=== PATIENT | female | born 1960 | race Caucasian/White ===

== ENCOUNTER 2020-02-12 21:31 | Emergency (ER) | payer BC, OTHER ==
[~2020-02-12] VITALS: Ht 157.5 cm; Wt 65.8 kg
[2020-02-12 22:03] VITALS: BP 128/71
[2020-02-12] MEDS ORDERED: Ketorolac 30mg Inj IM ONE (22:15)
[2020-02-12] MEDS ORDERED: Methocarbamol 500mg tab ORAL ONE (22:15)
--- NOTE | 2020-02-12 22:15 | Emergency Room Report ---
History of Present Illness General Chief Complaint: Pain Source: Patient Present Illness HPI Patient is a 60-year-old female denies any significant past medical history who presents to the ER complaining of left lower back pain rating down her left leg. Patient states that she first noticed this 1 year ago and that it resolved. She states that she noted again several days ago after walking a significant amount. Patient states that it was worse yesterday and better today. She denies any fever, rash, history of IV drug use, changes to her bowel or bladder habits or focal weakness. She denies any difficulty walking. She states that she just has painful walking. She denies any abdominal pain, nausea or vomiting. Allergies: Coded Allergies: No Known Allergies (Unverified , 02/12/20) COVID-19 Screening Contact w/high risk pt: No Recent Travel to affected area: No Experienced COVID-19 symptoms?: No COVID-19 Testing performed MANUFACTURING [employer]LECT[employer]IAN: No Patient History Social History: Denies: smoking, alcohol use, drug use Last Menstrual Period: na Now: No Reviewed Nursing Documentation: PMH: Agreed; PSxH: Agreed Nursing Documentation-PMH Past Medical History: No Stated History Review of Systems All Other Systems: negative except mentioned in HPI Physical Exam Vital Signs Date Time Temp Pulse Resp B/P (MAP) Pulse Ox O2 Delivery O2 Flow Rate FiO2 02/12/20 21:53 97.9 100 19 128/71 (90) 98 Room Air Sp02 EP Interpretation: reviewed, normal General Appearance: no apparent distress, alert, GCS 15, non-toxic Head: normocephalic, atraumatic Eyes: bilateral eye normal inspection, bilateral eye PERRL ENT: hearing grossly normal, normal pharynx, no angioedema, normal voice Neck: full range of motion, supple/symm/no masses Respiratory: chest non-tender, lungs clear, normal breath sounds, speaking full sentences Cardiovascular #1: regular rate, rhythm, no edema Gastrointestinal: normal bowel sounds, non tender, soft, non-distended, no guarding, no rebound Rectal: other - Able to squeeze butt cheeks together, no saddle anesthesia Genitourinary: no CVA tenderness Musculoskeletal: no calf tenderness, other - Left lower back pain positive straight leg raise on left leg at 60 degrees Neurologic: motor strength/tone normal, drying can worker III-XII nml as tested, oriented x3 , sensory intact Psychiatric: no suicidal/homicidal ideation Skin: no rash Lymphatic: no adenopathy Medical Decision Making Diagnostic Impression: Primary Impression: Lumbar strain Additional Impression: Sciatica ER Course Patient given Toradol as well as Robaxin and prednisone in the emergency room. On reevaluation she states that her pain has improved. CT lumbar spine demonstrates no acute abnormalities. I suspect the back pain that the patient is presenting with is non-emergent in etiology. Regarding the history, the patient denies gradual onset, trauma, fevers, night sweats, history of malignancy, pain worse at night, IVDU or refractory pain. Given these pertinent negatives in the history an emergent cause of the back pain is less likely. Also doubt cardiovascular cause of back pain such as aortic dissection or ruptured abdominal aortic aneurysm given patient with equal pulses in all 4 extremities with no diastolic murmur, or pulsatile abdominal mass. Epidural abscess considered unlikely given no fever or history of IVDU. The patient does not have history of malignancy so doubt metastasis to bone. Also doubt caudaequina syndrome since patient with no history of urinary/fecal incontinence or focal weakness or change in sensation. The patient was counseled that, though unlikely, the possibility of an emergent cause of back pain may still be present and that the patient should return immediately if symptoms persists or worsen. I believe the patient is stable for discharge to follow-up with their PMD for further workup and possible MRI. Last Vital Signs Date Time Temp Pulse Resp B/P (MAP) Pulse Ox O2 Delivery O2 Flow Rate FiO2 02/12/20 22:03 97.9 68 19 128/71 98 Room Air Disposition: HOME, SELF-CARE Condition: Stable Scripts Ibuprofen* (MOTRIN*) 600 Mg Tablet 600 MG ORAL FOUR TIMES A DAY, #30 TAB 0 Refills Prov: Tiffanie Barnett M.D. 02/12/20 Methocarbamol* (ROBAXIN-750*) 750 Mg Tablet 750 MG PO TID, #21 TAB 0 Refills Prov: Tiffanie Barnett M.D. 02/12/20 Additional Instructions: The patient was provided with discharge instructions, notified to follow-up with a primary care doctor and or specialist in the next 24-48 hours, and to return to the ED if they have worsening of their symptoms. Please note that this report is being documented using DRAGON technology. This can lead to erroneous entry secondary to incorrect interpretation by the dictating instrument. Tiffanie Barnett M.D. February 12, 2020 22:15
--- NOTE | 2020-02-12 23:05 | Diagnostic Imaging Report ---
EXAM: CT Lumbar Spine Without Intravenous Contrast CLINICAL HISTORY: Back pain. TECHNIQUE: Axial computed tomography images of the lumbar spine without intravenous contrast. CTDI is 8.00 mGy and DLP is 305.30 mGy-cm. One or more of the following dose reduction techniques were used: automated exposure control, adjustment of the mA and/or kV according to patient size, use of iterative reconstruction technique. COMPARISON: None. FINDINGS: Vertebrae: Alignment of the lumbar spine is within normal limits. No spondylolysis or spinal listhesis. Lumbar vertebral bodies are maintained in height. Spinous processes are unremarkable. No acute fracture. Sacrum/coccyx: Sacrum and coccyx are unremarkable. Soft tissues: Unremarkable. Vasculature: Atherosclerotic disease of the abdominal aorta without change in caliber. Lungs: Minimal subsegmental atelectasis posteriorly at the lung bases. Kidneys and ureters: Bilateral parapelvic cysts. No further workup is advised. DISCS/SPINAL CANAL/NEURAL FORAMINA: L1-L2: No significant focal abnormality. No stenosis. L2-L3: No significant focal abnormality. No stenosis. L3-L4: Very minimal broad-based protrusion with impression upon the anterior thecal sac, but no narrowing of neural foramina. L4-L5: Minimal broad-based protrusion with impression upon anterior thecal sac but no significant narrowing of neural foramina. L5-S1: Minimal broad-based protrusion with impression upon the anterior thecal sac, but no significant neural foramina. No stenosis. Other findings: Mild to moderate degenerative disc disease of the visualized spinal,. Mild to moderate osteoarthritic changes about the sacroiliac joints. The hip joints are intact. IMPRESSION: 1. No acute injury to the lumbar spine. 2. No spondylolysis or spondylolithesis 3. No compression fracture detected. 4. Minimal l osteoarthritic changes sacroiliac joint.
[2020-02-12] MEDS ORDERED: ROBAXIN-750750 MG PO (23:25)
[2020-02-12] MEDS ORDERED: IBUPROFEN600 M1 ORAL (23:25)
[2020-02-12 23:30] VITALS: BP 135/70
== END 2020-02-12 23:30 | disposition home or self-care (01) ==
LOC: EMR 22:55
DX: S39.012A Strain of muscle, fascia and tendon of lower back, initial encounter (principal); M54.30 Sciatica, unspecified side
CPT/HCPCS: 72131; 96372; 99284; J1885; J7512